=== PATIENT | female | born 1955 | race Caucasian/White ===

== ENCOUNTER 2017-02-20 11:27 | Emergency (ER) | payer OTHER ==
[~2017-02-20] VITALS: Ht 170.1 cm; Wt 72.6 kg
[~2017-02-20 11:27] MED LIST: 'XANAX1 MG PO; ALBUTEROL2.5 MG/0.5 INH; ATIVAN1 MG PO; ATORVASTATIN CA10 M1 PO; B12100 MC1 PO; BENTYL20 MG PO; BRIN20TA PO; CIPRO500 MG PO; CLONAZEPAM1 MG PO; CYCLOBENZAPRINE10 MG PO; CYMBALTA60 MG PO; DAYPRO600 M1 PO; DESYREL100 MG PO; DEXILANT60 M1 PO; DIFLUCAN150 MG PO; EES400 MG PO; FAMILY PHARMAC0.4 MG PO; FLUCELVAX IM; FOLIC ACID PO; FOLIC ACID0.4 MG PO; GLIMEPIRIDE4 M1 PO; GLYBURIDE5 MG PO; HYDR12.5C PO; HYOSCYAMINE0.125 M5 SL; IBU800 M1 PO; LANTUS SOL100 UNIT/1 SC; LANTUS SOLOS100 U/M1; LEVOFLOXACIN500 MG PO; LIPITOR10 MG PO; LISINOPRIL10 M1 PO; LISINOPRIL20 MG PO; LISINOPRIL40 MG PO; Motrin,Rufen800 MG PO; NEURONTIN300 MG PO; NORTRIPTYLINE H50 M1 PO; PREDNISONE20 M1 PO; PREDNISONE20 MG PO; PROTONIX40 MG PO; ROBAXIN750 MG PO; SYNTHROID,LEV100 MCG PO; SYNTHROID0.088 MG PO; Synthroid,Levo88 MCG PO; TRADJENTA5 M1 PO; TYLENOL500 MG PO; TYLENOL80 MG; VICODIN 5/500 505 MG PO; VITAMIN B1250 MCG PO; VITAMIN D50000 I3 PO; XANAX; XANAX XR2 MG PO; XANAX1 MG PO; ZESTRIL20 MG PO
[2017-02-20 11:46] LABS: BASO % 0.5 % (0.0-1.0); EOS # 0.1 10*3/uL (0.0-0.4); EOS % 1.5 % (1.0-4.0); HEMATOCRIT 43.2 % (37.0-47.0); HEMOGLOBIN 14.7 g/dl (12.0-16.0); LYMPH # 2.4 10*3/uL (1.3-4.4); LYMPH % 29.3 % (27.0-41.0); MEAN CELL VOLUME 89.3 fl (81.0-99.0); MEAN CORPUSCULAR HGB 30.4 pg (27.0-31.0); MEAN PLATELET VOLUME 10.1 fl (9.6-12.3); MONO # 0.5 10*3/uL (0.1-1.0); MONO % 6.1 % (3.0-9.0); NEUT # 5.1 10*3/uL (2.3-7.9); NEUT % 62.4 % (47.0-73.0); PLATELET COUNT AUTOMATED 230 10*3/uL (130-400); RED BLOOD COUNT 4.84 10*6/uL (4.10-5.10); RED CELL DISTRI WIDTH 11.9 % (0-14.5); WHITE BLOOD COUNT 8.2 10*3/uL (4.8-10.8)
[2017-02-20 11:56] LABS: ACT PARTIAL THROMBO TIME 22.2 SECONDS (20.8-31.5)
[2017-02-20 12:02] LABS: ALBUMIN 4.1 gm/dl (3.1-4.5); ALKALINE PHOSPHATASE 77 U/L (45-117); BUN 19 mg/dl (7-24); CHLORIDE 106 mmol/L (98-107); CKMB 2.6 ng/ml (0.5-3.6); CPK 159 U/L (26-192); CREATININE 1.05 mg/dL (0.55-1.02); LIPASE 150 U/L (73-393); MAGNESIUM 1.9 mg/dL (1.5-2.1); POTASSIUM 4.1 mmol/L (3.5-5.1); SGOT/AST 20 IU/L (3-35); SGPT/ALT 20 U/L (12-78); SODIUM 140 mmol/L (136-145); TOTAL PROTEIN 8.1 gm/dL (6.4-8.2); TROPONIN I 0.031 ng/ml (<0.045)
[2017-02-20 12:04] LABS: ACETAMINOPHEN (TYLENOL) < 2.0 ug/ml (10-30); ETHYL ALCOHOL < 3.0 mg/dl (<3)
[2017-02-20 12:44] LABS: BILIRUBIN NEGATIVE (NEGATIVE); BLOOD NEGATIVE (NEGATIVE); CLARITY CLEAR (CLEAR); COLOR YELLOW (YELLOW); GLUCOSE NEGATIVE (NEGATIVE); KETONE NEGATIVE (NEGATIVE); LEUKO ESTERASE NEGATIVE (NEGATIVE); NITRITE NEGATIVE (NEGATIVE); SPECIFIC GRAVITY >= 1.030 (1.005-1.030); UROBILINOGEN 0.2 E.U./dl (0.2-1.0)
[2017-02-20 12:51] LABS: RBC 0-2 rbc/hpf (0-2)
[2017-02-20 12:52] LABS: URINE AMPHETAMINES < 1000 (1000ng/ml); URINE BARBITURATES < 200 (200ng/ml); URINE BENZODIAZEPINES > 200 (200ng/ml); URINE CANNABINOIDS (THC) > 50 (50ng/ml); URINE COCAINE < 300 (300ng/ml); URINE METHADONE < 300 (300ng/ml); URINE OPIATES < 300 (300ng/ml)
[2017-02-20 12:54] LABS: URINE PHENCYCLIDINE < 25 (25ng/ml)
[2017-02-20] MEDS ORDERED: CLOPIDOGREL75 MG PO (16:46)
[2017-02-20] MEDS ORDERED: CARVEDILOL3.125 MG PO (16:47)
[2017-02-20] MEDS ORDERED: NAPROXEN550 MG PO (16:50)
[2017-02-20] MEDS ORDERED: VITAMIN D-32000 UNIT PO (16:56)
[2017-02-20] MEDS ORDERED: PEPCID20 MG PO (16:56)
[2017-02-20] MEDS ORDERED: BUSPIRONE10 MG PO (16:58)
== END 2017-02-20 13:51 | disposition home health service (06) ==
LOC: ED 11:27
PROVIDERS: Emergency Medicine
DX: F33.1 Major depressive disorder, recurrent, moderate (principal); E11.9 Type 2 diabetes mellitus without complications; F17.200 Nicotine dependence, unspecified, uncomplicated; Z88.0 Allergy status to penicillin; Z88.6 Allergy status to analgesic agent; Z79.899 Other long term (current) drug therapy

== ENCOUNTER 2017-02-20 14:01 | Inpatient (IN) | payer OTHER ==
[~2017-02-20] VITALS: Ht 137.1 cm; Wt 65.8 kg
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
--- NOTE | 2017-02-20 15:00 | NUR ---
PT ARRIVED ON UNIT VIA WHEELCHAIR WITH RN AND SECURITY ESCORTING.
[2017-02-20 15:04] VITALS: BP 104/58
[2017-02-20 15:42] VITALS: BP 104/58
--- NOTE | 2017-02-20 16:30 | NUR ---
ARA FOY a 61 year old F admitted via wheel chair from the EMERGENCY ROOM as a voluntary admission. Arrived on unit at 1500. ALLERGIES:PENCILLLIN, MORPHINE Vital signs are: 97.3-78-16 104/58. The client signed the following forms with stated understanding: Authorization For The Release of Medical Information, Clothing List, Consent to Voluntary Admission and Hospitalization, Consent and Release Forms/Receipt of Rights, Acknowledgement of Advance Directive Information, Behavioral Health Consent Form, and Informed Consent of Medications. [facility] A search was conducted and hazardous articles were removed. Client was oriented to the unit. HEATHER DIAZ
[2017-02-20] MEDS ORDERED: CLOPIDOGREL75 MG PO (16:46)
[2017-02-20] MEDS ORDERED: CARVEDILOL3.125 MG PO (16:47)
[2017-02-20] MEDS ORDERED: NAPROXEN550 MG PO (16:50)
[2017-02-20] MEDS ORDERED: PEPCID20 MG PO (16:56)
[2017-02-20] MEDS ORDERED: VITAMIN D-32000 UNIT PO (16:56)
[2017-02-20] MEDS ORDERED: BUSPIRONE10 MG PO (16:58)
--- NOTE | 2017-02-20 17:09 | NUR ---
NOTIFIED OF MEDICAL MANAGEMENT CONSULT NEEDED. HOME MEDS VERIFIFED WITH PT PHARMACY
[2017-02-20 20:00] VITALS: BP 129/65
--- NOTE | 2017-02-20 21:20 | NUR ---
CLIENT CAME OUT OF HER ROOM UNAWARE THAT MILIEU WAS IN THE NEXT ROOM. SHE WAS PROCEEDED TO TALK TO HERSELF SAYING IN VULGAR LANGUAGE ASKED DOES THIS BED HAVE BED BUGS AND IT BETTER "FOUL LANGUAGE" NOT. MILIEU TRIED TO PROVIDE ASSURANCE THAT THE BED WAS CLEAN CLIENT THEN SAID "OH SORRY YOU WEREN'T SUPPOSED TO HEAR THAT"
--- NOTE | 2017-02-20 21:44 | NUR ---
REVIEWED EACH MEDICATION AND ITS PROCESS. REFUSED INSULIN COVERAGE.
--- NOTE | 2017-02-21 05:18 | NUR ---
24 HR chart check completed.
[2017-02-21 07:35] LABS: BASO % 0.3 % (0.0-1.0); EOS # 0.1 10*3/uL (0.0-0.4); EOS % 0.8 % (1.0-4.0); LYMPH % 19.7 % (27.0-41.0); MEAN CELL VOLUME 91.1 fl (81.0-99.0); MEAN CORPUSCULAR HGB 30.4 pg (27.0-31.0); MEAN CORPUSCULAR HGB CONC 33.3 g/dl (33.0-37.0); MEAN PLATELET VOLUME 10.5 fl (9.6-12.3); MONO # 0.5 10*3/uL (0.1-1.0); NEUT # 7.4 10*3/uL (2.3-7.9); NEUT % 73.9 % (47.0-73.0); PLATELET COUNT AUTOMATED 245 10*3/uL (130-400); RED BLOOD COUNT 4.61 10*6/uL (4.10-5.10); RED CELL DISTRI WIDTH 11.9 % (0-14.5)
[2017-02-21 08:05] LABS: ALBUMIN 3.9 gm/dl (3.1-4.5); ALKALINE PHOSPHATASE 76 U/L (45-117); BUN 28 mg/dl (7-24); CHLORIDE 104 mmol/L (98-107); CHOLESTEROL 204 mg/dL (<200); CREATININE 1.05 mg/dL (0.55-1.02); HDL CHOLESTEROL 52 mg/dl (40-60); LDL CHOLESTEROL 119 mg/dL (9-159); POTASSIUM 3.9 mmol/L (3.5-5.1); SGOT/AST 17 IU/L (3-35); SGPT/ALT 22 U/L (12-78); SODIUM 138 mmol/L (136-145); TRIGLYCERIDES 166 mg/dl (<150); VLDL CHOLESTEROL 33 mg/dL (6-40)
[2017-02-21 08:51] VITALS: BP 100/55
--- NOTE | 2017-02-21 08:58 | NUR ---
PER , HOLD BP MEDICATIONS DUE TO BP 100/55.
--- NOTE | 2017-02-21 09:37 | NUR ---
PATIENT ATE 100% OF BREAKFAST THIS MORNING. MEDICATION COMPLIANT WITHOUT DIFFICULTY. STATES SHE DID NOT SLEEP WELL LAST NIGHT. WENT BACK TO ROOM TO LAY DOWN AFTER BREAKFAST THIS MORNING. APPROPRIATE IN CONVERSATIONS DURING MED PASS.
--- NOTE | 2017-02-21 11:28 | NUR ---
MADE AWARE COREG AND LISINOPRIL WERE HELD THIS AM FOR BP 100/55. NNO AT THIS TIME.
--- NOTE | 2017-02-21 16:20 | NUR ---
DR. BOSWELL AND DR. PERALTA ON UNIT TO SEE PT AT THIS TIME, MADE AWARE OF ELEVATED HBGAIC.
--- NOTE | 2017-02-21 16:31 | NUR ---
Niki is alert and oriented x4, able to make needs and wants known to staff. Mood is depressed with sad affect. Low anxiety levels noted most of the day. She denies any SI/HI. She denies any hallucinations or delusions and none are noted. Some parania verbalized in regards to "the people that live in my building." Emotional support provided during this time with good effect. Niki has been calm and cooperative with staff and peers throughout the day. Went back to sleep this morning after breakfast for approximately 1-2 hours. States she did not sleep well last night. Encouraged patient to stay awake during daylight hours, as to no not disrupt sleep/wake cycles with minimal effect. Attending and participating in some but not group therapies this shift, encouraged to attend more of the group therapies throughout the shift. Medication compliant without difficulty. Limited interactions with peers. Appetite good for meals. Ambulates independently with slow and steady gait. Continent of B&B with bathroom privileges. Respirations easy and even on room air. No acute distress noted. Will continue with Q15 min observation checks per orders. Will continue to encourage group therapy attendence and participation.
[2017-02-21 21:04] VITALS: BP 132/67
--- NOTE | 2017-02-21 21:30 | NUR ---
PATIENT REQUEST THAT THIS NURSE REVIEW HER HS MEDICATIONS. THIS NURSE REVIEWED MEDICATIONS WITH PATIENT AND PATIENT WITH CLARIFICATION WITH LEVEMIR INCREASED FROM 25 UNITS TO 28 UNITS. PATIENT TOOK MEDICATIONS WITHOUT DIFFICULTY
--- NOTE | 2017-02-22 03:05 | NUR ---
24 HR chart check completed.
--- NOTE | 2017-02-22 04:49 | NUR ---
PER NURA AT THE HEALTH PLAN, IP STAY MEGAN THROUGH 02/23/17 WITH REVIEW DUE 02/24/17.
--- NOTE | 2017-02-22 05:25 | NUR ---
B: DEPRESSION I: THERAPEUTIC COMMUNICATION, 1:1 R: I WANT TO GO HOME. I JUST DON'T FEEL LIKE IT IS GOING TO WORK OUT HERE P: MEDICATION COMPLIANCE, IDENTIFY COPING SKILLS TO DECREASE DEPRESSIVE EPISODES, PARTICIPATE IN GROUP ACTIVITIES
--- NOTE | 2017-02-22 05:55 | NUR ---
Q 15 MINUTE CHECKS MAINTAINED. SLEPT GREATER THAN 6 HOURS THROUGHOUT SHIFT
--- NOTE | 2017-02-22 07:41 | NUR ---
Exercise/Trivia-Morning group BINGO-Afternoon group Morning group of exercise helps the patient stay active and the joints mobile,trivia helps with socialization,thinking,and focusing. Patient did not attend Morning group. Patient was encourage by this staff memberto attend this group as well as others. Explained that it was very benificial for patient to all groups. Patient still refused stating it was a bad night and she did not get any sleep and she wanted to sleep. Patient did attend afternoon group of BINGO as well as participated. Patient was very friendly,interacting with other patients. Patient focused on her cards and also helped another patient when he became confussed.
[2017-02-22 08:18] VITALS: BP 114/70
--- NOTE | 2017-02-22 15:46 | NUR ---
PT ALERT TO PERSON,PLACE,TIME AND SITUAITON. PT MED COMPLIANT WITHOUT DIFFICULTY, MED EDUCATION PROVIDED. PT MOOD IS STABLE. PT GOAL DIRECTED TO GOING HOME. NO HALLUCINATIONS OR DELUSIONS NOTED. PT DENIES ANY HOMICIDAL/SUICIDAL THOUGHTS. PT AMBULATORY THROUGHOUT UNIT, GAIT STEADY. PT CONTINENT OF BOWEL AND BLADDER. PLAN IS TO ENCOURGAE PT TO PARTICIPATE IN GROUPS/ACTIVITITES, MONITOR PT BEHAVIORS ON Q15 MIN SAFETY CHECKS.
[2017-02-22 20:12] VITALS: BP 117/70
--- NOTE | 2017-02-22 21:35 | NUR ---
PATIENT IN DINING AREA WATCHING TELEVISION. PATIENT HAVING APPROPRIATE CONVERSATIONS WITH OTHER PATIENTS. MEDICATION COMPLIANCE. PATIENT ALSO EAGER TO GO HOME
--- NOTE | 2017-02-23 04:57 | NUR ---
B: DEPRESSION I: THERAPEUTIC COMMUNICATION, 1:1 R: I WANT TO GO HOME I JUST HOPE I DON'T GET STRESSED ABOUT IT P: MEDICATION COMPLIANCE, IDENTIFY COPING SKILLS FOR DEPRESSION, PARTICIPATE IN GROUPS
--- NOTE | 2017-02-23 05:25 | NUR ---
24 HR chart check completed.
--- NOTE | 2017-02-23 05:54 | NUR ---
Q 15 MINUTE SAFETY CHECKS MAINTAINED. SLEPT > 8 HRS THROUGHOUT SHIFT
[2017-02-23 07:56] VITALS: BP 106/60
[2017-02-23] MEDS ORDERED: NEURONTIN300 MG PO (08:02)
[2017-02-23] MEDS ORDERED: VRAYLAR3 MG PO (08:02)
[2017-02-23] MEDS ORDERED: CLONAZEPAM1 MG PO (08:02)
[2017-02-23] MEDS ORDERED: DOXEPIN HCL25 MG PO (08:02)
--- NOTE | 2017-02-23 09:51 | NUR ---
CALLED HOSPITALIST CELL NUMBER [phone], SPOKE WITH WHO WAS MADE AWARE PT TO BE DISCHARGED AROUND 1230 TO HOME TODAY.
--- NOTE | 2017-02-23 10:00 | NUR ---
MEDICATION COMPLIANT WITHOUT DIFFICULTY THIS MORNING. APPETITE GOOD FOR BREAKFAST, ATE 90%. TAKING FLUIDS WELL. VERBALIZING SHE IS READY TO BE DISCHARGED. THANKING STAFF FOR SUPPORT AND TREATMENT WHILE SHE WAS HERE.
--- NOTE | 2017-02-23 12:00 | NUR ---
PATIENT IS ALERT AND ORIENTED X4. PLEASANT AND COOPERATIVE. MOOD IS STABLE AND EUTHYMIC WITH APPROPRIATE AFFECT. NO DELUSIONS, HALLUCINATIONS, DELUSIONS, OR ABNORMAL BEHAVIORS NOTED. ATTENDING AND PARTICIAPTING IN GROUP THERAPIES. POSITIVE PEER INTERACTIONS NOTED. MEDICATION COMPLIANT WITHOUT DIFFICULTY. DENIES SI/HI. APPETITE GOOD FOR MEALS, TAKING FLUIDS WELL. VERBALIZING SHE IS READY FOR DISCHARGE. SMILING AND HAPPY TODAY. REVIEWED MEDICATIONS IN DEPTH WITH PATIENT WITH MEDICATION EDUCATION HANDOUTS GIVEN. PATIENT VERBALIZES UNDERSTANDING OF ALL MEDICATIONS.
--- NOTE | 2017-02-23 12:30 | NUR ---
Discharge instructions reviewed with patient. Patient receptive and verbalizes understanding. Follow-up care arranged. Written instructions given to patient. All home medications from pharmacy sent home with patient. Script for Klonopin sent with patient. All belongings and personal items accounted for and sent with patient. Patient discharged at this time via w/c to main lobby via staff, in care of son, transported via private vehicle. JYOTI LOMELI
--- NOTE | 2017-02-23 12:36 | NUR ---
Exercise/Reminiscing This group helps the patients stay active and theyre joints moving since they mainly lay in bed or sit all day. It also helps with memory,concentration,thinking, and socializing. Patient did attend group as well as participate. Patient interacted with others and shared her memories of her children,baking etc. Patient also encouraged others to share memories
--- NOTE | 2017-02-23 19:55 | NUR ---
SOO COURTNEY FOLLOWUP WITH dR. Hawkins MAR. 1PM AND [facility] 10:15. AND dR. DOUGLAS AT 1PM. THESE WER THE FIRST AVAILBLE APOOINTMENTS.
--- NOTE | 2017-02-23 19:57 | NUR ---
SOO CALLED THELMA MELCHOR AND HE IS ABLE TO [facility]AB[facility] MANAGER PT AROUND 12:30 - 1PM.
--- NOTE | 2017-02-23 19:57 | NUR ---
SW REVIEWED DISCJARGE PAPERS WITH PT AND GAVE COY. PT TO BE DISCHARGE HOME. SOO EXPLAINED THAT PT WAS ON THE CANCELATION LIST TO GET IN SOONER WITH DR. WALSH AND Kaveh URENA. pT IS CONSIDERING SEEING NEW digital strategy manager THAT WILLBE TAKING OVER FOR dR. Walsh. sjE MAY CALL IF SHE FEELS THAT HSE NEEDS IN SOONER.
== END 2017-02-23 12:30 | disposition home or self-care (01) | DRG 885 ==
LOC: 3N 14:01
PROVIDERS: ADMIT Psychiatry & Neurology Psychiatry
DX: F33.2 Major depressive disorder, recurrent severe without psychotic features (principal); E11.9 Type 2 diabetes mellitus without complications; I10 Essential (primary) hypertension; E55.9 Vitamin D deficiency, unspecified; E03.9 Hypothyroidism, unspecified; F41.0 Panic disorder [episodic paroxysmal anxiety]; F34.1 Dysthymic disorder; E78.00 Pure hypercholesterolemia, unspecified; K21.9 Gastro-esophageal reflux disease without esophagitis; F43.10 Post-traumatic stress disorder, unspecified; G89.29 Other chronic pain; M79.601 Pain in right arm; Z90.49 Acquired absence of other specified parts of digestive tract; Z72.0 Tobacco use; Z90.710 Acquired absence of both cervix and uterus; Z90.89 Acquired absence of other organs; Z82.49 Family history of ischemic heart disease and other diseases of the circulatory system; Z83.3 Family history of diabetes mellitus; Z80.9 Family history of malignant neoplasm, unspecified; Z88.0 Allergy status to penicillin; Z88.6 Allergy status to analgesic agent; Z79.899 Other long term (current) drug therapy